=== PATIENT | female | born 2000 | race Caucasian/White ===

== ENCOUNTER 2023-10-06 01:34 | Emergency (ER) | payer OTHER, SELFPAY ==
[2023-10-06 01:38] VITALS: BP 136/83; PULSE 79; RESP 18; TEMP 36.7; O2SAT 99; BMI 24.4
--- NOTE | 2023-10-06 02:05 | ED_ITS ---
HPI - Animal Bite General Date Seen: 10/06/23 Chief Complaint: Animal Bite Stated Complaint: Bat bite Time Seen by Provider: 10/06/23 01:41 Source: patient Mode of arrival: ambulatory Limitations: no limitations History of Present Illness HPI narrative: Patient is a 23-year-old humble curtis who has been previously vaccinated for rabies in 2018. Tonight she awoke to a fluttering near her left hand. She turned on the light there was a bat next her hand and it bit her on the left thumb. There is no bleeding. She washed the area immediately. She has the bat contained in the bedroom but has not captured it yet. Related Data Home Medications ?Medication ?Instructions ?Recorded ?Confirmed No Known Home Medications 10/06/23 10/06/23 Allergies Allergy/AdvReac Type Severity Reaction Status Date / Time No Known Drug Allergies Allergy Verified 10/06/23 01:41 Review of Systems Narrative: Review of systems is outlined above otherwise noted to be negative. [facility] Medical History (Updated 10/06/23 @ 02:05 by Marco Ventura MD) No significant past medical history Surgical History (Updated 10/06/23 @ 01:53 by Ronan Taylor RN) No significant past surgical history Family History Aunt Breast cancer Uncle Diabetes Social History Narrative: [employer] College degree Walks 5 times a week Nonsmoker Alcohol use: 1 drink per week What is your current living situation?: I presently have a place to live Problems where you live: no known problems In the past 12 months, utilities in danger of being shut off: no In past 12 months, lack of transportation kept you from medical appts, meetings, work, or getting things needed for daily living: no In the past 12 mos, have been you worried that your food would run out before you had money to buy more?: never true In the past 12 mos, the food you bought just didn't last and you didn't have money to buy more?: never true Smoking Status: Never smoker Second hand tobacco smoke exposure: No How often do you have a drink containing alcohol: never AUDIT-C Alcohol total score: 0 Non-prescribed substance use: denies use How often does anyone, including family, friends and others, physically hurt you : never How often does anyone, including family, friends and others, insult or talk down to you: never How often does anyone, including family, friends and others, threaten you with harm: never How often does anyone, including family, friends and others, scream or curse at you: never Little interest or pleasure in doing things: not at all Feeling down, depressed, or hopeless: not at all Exam Narrative: Exam Narrative: Vitals noted. Examination is limited to the left upper extremity. She has a very tiny puncture wound on the palmar aspect of the left thumb. No bleeding. No redness. No pain with movement. Const: Vital Signs, click to edit/add: Vital Signs - 24 hr 10/06/23 01:38 Temperature 98.0 F Pulse Rate [Right Pulse Oximeter] 79 Respiratory Rate 18 Blood Pressure [Le ft Upper Arm] 136/83 Pulse Oximetry 99 Oxygen Delivery Me thod Room Air Course Course ED Course: Patient was seen and examined. We made a phone call to the [place] department of Health to get their recommendation. If the back can be captured in brought at the [facility] he will be tested for rabies and the results take about 24 hours. If they were unable to capture the bat or fit test positive for rabies she will need rabies vaccine given and repeated in three days. She is comfortable with this plan. Vital Signs Vital signs: Initial Vital Signs Temperature 98.0 F 10/06/23 01:38 Temperature Source Temporal Artery Scan 10/06/23 01:38 Pulse Rate 79 10/06/23 01:38 Respiratory Rate 18 10/06/23 01:38 Blood Pressure 136/83 10/06/23 01:38 Blood Pressure Mean 100 10/06/23 01:38 Blood Pressure Position Sitting 10/06/23 01:38 Pulse Oximetry 99 10/06/23 01:38 Oxygen Delivery Method Room Air 10/06/23 01:38 Vital Signs Temperature 98.0 F 10/06/23 01:38 Pulse Rate 79 10/06/23 01:38 Respiratory Rate 18 10/06/23 01:38 Blood Pressure 136/83 10/06/23 01:38 Pulse Oximetry 99 10/06/23 01:38 Oxygen Delivery Method Room Air 07/31/24 01:38 Temperature 98.0 F 10/06/23 01:38 Pulse Rate 79 10/06/23 01:38 Respiratory Rate 18 10/06/23 01:38 Blood Pressure 136/83 10/06/23 01:38 Pulse Oximetry 99 10/06/23 01:38 Oxygen Delivery Method Room Air 10/06/23 01:38 Discharge Plan Discharge Clinical Impression: Bite by animal Patient Disposition: Home, Self-Care Condition: Stable Additional Instructions: If you are able to capture the bat then bring it to the [facility] for rabies testing. If he tests positive you will need two doses of rabies vaccine by three days. Your unable to capture the bat he will need dose to doses in that can be provided at your primary care clinic. Follow-up your PCP for any signs of infection at the site of the bite. Prescriptions: No Action No Known Home Medications Follow Up/Referrals: Caitlin Cox PA-C [Physician Office Helper Clerical] - Provider,Not a Local [Primary Care Provider] - Stand Alone Forms: [employer] Info Instructions
[2023-10-06 02:08] VITALS: BP 136/83; PULSE 79; RESP 18; TEMP 36.7; O2SAT 99
[2023-10-06 02:15] VITALS: BP 136/83; PULSE 79; RESP 18; TEMP 36.7
== END 2023-10-06 02:15 | disposition home or self-care (01) ==
LOC: ED 02:10
PROVIDERS: Emergency Provider Family Medicine
DX: S60.372A Other superficial bite of left thumb, initial encounter (principal); Z20.3 Contact with and (suspected) exposure to rabies
CPT/HCPCS: 99281; 99282